=== PATIENT | female | born 2005 | race Hispanic/Latino ===

== ENCOUNTER 2025-05-05 21:24 | Emergency (ER) | payer SELFPAY ==
[~2025-05-05] VITALS: Ht 160 cm; Wt 74.4 kg
[2025-05-05 21:26] VITALS: BP 145/79; PULSE 88; RESP 18; TEMP 97.4
[2025-05-05 22:03] LABS: RAPID GROUP A STREP negative (NEGATIVE)
[2025-05-05 22:13] LABS: COVID19 (SARS ANTIGEN RAPID) PRESUMPTIVE NEGATIVE (NEGATIVE)
[2025-05-05 22:32] LABS: INFLUENZA TYPE A Negative For Type A (NEGATIVE)
[2025-05-05 22:35] LABS: INFLUENZA TYPE B Positive For Type B (NEGATIVE)
[2025-05-05] MEDS ORDERED: OSEL75 PO (23:25)
--- NOTE | 2025-05-05 23:25 | ERN ---
ED Note History of Present Illness Stated Complaint: RASH Chief Complaint: Skin Rash/Abscess Time Seen by MD: 21:28 Time Seen by Midlevel: 21:28 Dictation: The patient is a 19-year-old female with a no past medical history who presents to the emergency department with complaints of rash to abdomen and back. Patient reports she got it last Wednesday. Reports the rash is itchy. Patient reports that also on Wednesday she started with a upper respiratory symptoms, reports body aches cough and congestion. Patient however denies any nausea or vomiting diarrhea or fevers. Denies any sore throat. Allergies: Coded Allergies: No Known Allergies (Unverified Allergy, Unknown, 05/05/25) Past Medical History Past Medical History: No Pertinent History Surgical History: None LMP: Apr 05, 2025 RN Note Reviewed/Agreed w/PFSH: Yes Review of System Dictation Constitutional: Negative for fever,chills, and weight loss Eyes: Negative for injury, pain,redness, and discharge ENT: Negative for injury,pain or swelling Cardiovascular: Negative for chest pain, palpitations, and edema Respiratory: Negative for shortness of breath, cough, and wheezing, Abdomen/GI: Negative for abdominal pain, nausea, vomiting, diarrhea, and constipation Back: Negative for injury and pain : Negative for injury, bleeding and discharge MS/Extremity: Negative for injury and deformity Skin: Positive for rash Neuro: Negative for headache, weakness, numbness, tingling, and seizure Psych: Negative for suicide ideation, homicidal ideation, and hallucinations Initial Vital Sign VS Vital Signs Date Time Temp Pulse Resp B/P (MAP) Pulse Ox O2 Delivery O2 Flow Rate FiO2 05/05/25 21:26 97.3 88 18 145/79 99 Room Air Physical Exam Dictation Vital Signs reviewed General Appearance: Alert, oriented x 3, no acute distress, well developed, nourished. Head and Face: non-traumatic. Eyes: PERRL, pink conjunctivas, eyelid no trauma, anterior chamber with arcus s enilis. Ears: Pinnas intact and no signs of trauma or erythema ear canals clear and no discharge TM no erythema Nose: No discharge, no bleeding. Oropharynx: Mouth normal, tongue pink. pharynx clear,no erythema, tonsils no exudates, no abscesses noted, mucous membrane moist Neck: Supple, non-tender, no thyromegaly, no masses, no JVD, no bruits Breast:Deferred Chest:No tenderness, no crepitus, no paradoxical movement, no retractions Lungs:Clear, well-ventilated, symmetric, no rales, no wheezing, no rhonchi, no stridor, good breath sounds bilaterally Heart: Regular rate, regular rhythm, no murmur, no gallops Vascular: no peripheral edema, Abdomen: Soft, positive bowel sounds, nondistended, no guarding, nontender, no rebound, no masses no hepatomegaly, no splenomegaly, no Lopez's sign, no hernias. Rectal: Deferred Genital: Deferred Neurological: Normal speech, motor function intact, sensory function intact Musculoskeletal: Neck nontender, full range of motion, back nontender, full range of motion, Extremities: nontender, full range of motion Skin: Color pink, dry, no turgor, no lacerations, no abrasions, no contusions. Erythemic hives noted to chest, back, abdomen Lymphatic: Deferred Results (Laboratory/Radiology) Laboratory/Radiology Laboratory Tests Test 05/05/25 21:45 05/05/25 22:30 Influenza Type A Antigen Negative For Type A Influenza Type B Antigen Positive For Type B SARS-CoV-2 Antigen (Rapid) PRESUMPTIVE NEGATIVE Group A Streptococcus Rapid negative (NEGATIVE) Urine HCG, Qualitative POSITIVE (NEGATIVE) H Labs Reviewed?: Yes ED Course ED Course Orders Procedure Category Date Status Time Influenza Type A & B, LAB 05/05/25 Complete Rapid 21:45 Rapid (Group A Strep) LAB 05/05/25 Complete 21:45 Covid19 (Sars Antigen LAB 05/05/25 Complete Rapid) 21:45 ,Urine Test LAB 05/05/25 Complete 22:27 Diphenhydramine Hcl PHA 05/05/25 Logged (Benadryl Cap) 23:30 Oseltamivir Phosphate PHA 05/05/25 Logged (Tamiflu) 23:30 Current Medications Medications (Trade) Dose Ordered Sig/Mavis Route PRN Reason Start Time Stop Time Status Last Admin Dose Admin Diphenhydramine HCl (BENAdryl CAP) 25 mg ONCE ONCE PO 05/05/25 23:30 05/05/25 23:31 UNV Oseltamivir Phosphate (Tamiflu) 75 mg ONCE ONCE PO 05/05/25 23:30 05/05/25 23:31 UNV Vital Signs Date Time Temp Pulse Resp B/P (MAP) Pulse Ox O2 Delivery O2 Flow Rate FiO2 05/05/25 21:26 97.3 88 18 145/79 99 Room Air Medical Decision Making MDM The patient is a 19-year-old female with a no past medical history who presents to the emergency department with complaints of rash to abdomen and back. Patient reports she got it last Wednesday. Reports the rash is itchy. Patient reports that also on Wednesday she started with a upper respiratory symptoms, reports body aches cough and congestion. Patient however denies any nausea or vomiting diarrhea or fevers. Denies any sore throat. Patient with a rash to chest back and abdomen. No rash noted to lower extremit ies. Patient also with a positive test on urine. Patient denied any known . Denies any abdominal pain, vaginal bleeding or discharge. Reports last menstrual period was April 11. Patient will be treated for rash. Patient otherwise in no acute distress, nontoxic appearance. Patient instructed to follow up with PCP. Differential diagnosis: Allergic reaction, acute urticaria, strep throat Need for hospitalization: Patient does not meet criteria for hospitalization. There are no social concerns with this patient. DX & DISP Disposition: Discharge Departure Impression: Primary Impression: Rash Additional Impressions: Acute urticaria, Influenza B, Positive test Condition: Stable Scripts Oseltamivir Phosphate (Tamiflu) 75 Mg Cap 75 MG PO BID for 5 Days, #10 CAP Prov: [employer] 05/05/25 Additional Instructions: Please follow up with your primary doctor in 1-2 days. Follow up with the your OBGYN about your positive test. Take your medications as prescribed. If you develop severe shortness of breath, abdominal pain or vaginal bleeding or if anything worsens please return to ER. FOLLOW-UP WITH PRIMARY CARE PROVIDER IN 1 TO 2 DAYS. TAKE MEDICATIONS DIRE CTED HERE IN THE EMERGENCY ROOM. OKAY TO CONTINUE HOME MEDICATIONS UNLESS OTHERWISE DISCUSSED DURING YOUR VISIT IN THE EMERGENCY ROOM TODAY. RETURN TO YOUR NEAREST EMERGENCY ROOM IF SYMPTOMS WORSEN OR IF THERE IS NO IMPROVEMENT. CALL 911 IF YOU NEED IMMEDIATE ASSISTANCE. TAKE TYLENOL [id number] NEEDED AND IF NO CONTRAINDICATIONS ARE PRESENT. INCREASE ORAL HYDRATION. A WOUND CULTURE OR URINE CULTURE WAS ORDERED HERE IN THE EMERGENCY ROOM DEPARTMENT PLEASE FOLLOW-UP WITH PRIMARY CARE PROVIDER AND ADVISE THEM TO GET REPEAT PORTS FROM OUR FACILITY. IF YOU HAD ANY DREW WRAP/SPLINTS THAT WERE APPLIED HERE, PLEASE DO NOT REMOVE THEM UNTIL YOU SEE YOUR PRIMARY CARE OR SPECIALTY. Referrals: SELF,REFERRAL (PCP) Time of Disposition: 23:23 I have examined patient, & reviewed all documents, & agreed W/ the Diagnosis, and Plan [employer] May 05, 2025 23:25
[2025-05-05] MEDS: OSELTAMIVIR PHOSPHATE 75 MG CAP PO ONE (23:30)
== END 2025-05-05 23:35 | disposition home or self-care (01) ==
LOC: EDH 21:24
DX: L50.9 Urticaria, unspecified (principal); J10.1 Influenza due to other identified influenza virus with other respiratory manifestations; Z32.01 Encounter for pregnancy test, result positive; Z20.822 Contact with and (suspected) exposure to COVID-19
CPT/HCPCS: 99283; 87426; 87880; 87804 ×2; 81025; Q0163